=== PATIENT | female | born 1945 | race Caucasian/White ===

== ENCOUNTER 2022-07-19 18:53 | Emergency (ER) | payer SELFPAY ==
[~2022-07-19] VITALS: Ht 157.5 cm; Wt 83.5 kg
[~2022-07-19 18:53] MED LIST: DIOVAN; GLIPIZIDE; METFORMIN; NOVOLOG 70/30
[2022-07-19] MEDS ORDERED: LACTATED RINGER'S 1,000 ML INJ ONE (19:15)
[2022-07-19 19:29] LABS: BASOPHILS # (AUTO) 0.1 (0.0-0.1); BASOPHILS % 0.5 % (0.0-1.0); EOSINOPHILS % 0.3 % (0.0-6.0); HEMATOCRIT 38.3 % (34.2-44.1); HEMOGLOBIN 12.5 g/dL (12.0-16.0); LYMPHOCYTES # (AUTO) 1.3 (1.0-3.2); LYMPHOCYTES % 11.8 % (18.0-39.1); MEAN CORPUSCULAR HEMOGLOBIN 31.2 pg (28-32); MEAN CORPUSCULAR HGB CONC 32.6 g/dL (31-35); MEAN CORPUSCULAR VOLUME 95.5 fL (81-99); MONOCYTES # (AUTO) 0.9 (0.2-0.8); NEUTROPHILS # (AUTO) 8.6 (2.1-6.9); NEUTROPHILS % 79.1 % (38.7-80.0); PLATELET COUNT 287 x10e3/uL (140-360); RED BLOOD COUNT 4.01 x10e6/uL (3.6-5.1); RED CELL DISTRIBUTION WIDTH 10.9 % (11.7-14.4)
[2022-07-19 19:48] LABS: ALBUMIN 3.1 g/dL (3.5-5.0); ALBUMIN/GLOBULIN RATIO 0.7 (0.8-2.0); ANION GAP 18.4 mmol/L (8-16); CALCIUM 8.7 mg/dL (8.4-10.2); CREATININE, SERUM 0.82 mg/dL (0.57-1.11); POTASSIUM 3.4 mmol/L (3.5-5.1)
[2022-07-19 19:50] LABS: CLARITY,URINE CLEAR (CLEAR); COLOR,URINE YELLOW (YELLOW); KETONES,URINE NEGATIVE (NEGATIVE); LEUKOCYTE ESTERASE ,URINE NEGATIVE (NEGATIVE); NITRITE,URINE NEGATIVE (NEGATIVE); PROTEIN,URINE DIPSTICK 1+ (NEGATIVE); URINE UROBILINOGEN 0.2 mg/dL (0.2 - 1)
[2022-07-19] MEDS ORDERED: MUCINEX DM ER1 EACH PO (20:01)
[2022-07-19 20:44] VITALS: BP 125/70
== END 2022-07-19 20:46 | disposition home or self-care (01) ==
LOC: ER 18:59
DX: R50.9 Fever, unspecified (principal); U07.1 COVID-19; R05.9 Cough, unspecified; R09.89 Other specified symptoms and signs involving the circulatory and respiratory systems
CPT/HCPCS: 36415; 71045; 80053; 81001; 85025; 87400; 93005; 99284; U0002

== ENCOUNTER 2023-01-14 06:52 | Observation (INO) | payer MEDICARE ==
[~2023-01-14 06:52] MED LIST changes: +ACETAMINOPHEN 1000 MG/100 ML 100 ML IV ONE; +AMLODIPINE BESYL5 MG PO; +ASPIRIN81 MG PO; +B12; +CELEBREX200 MG PO; +DOXYCYCLINE HY100 MG PO; +HYZAAR 100-251 EACH PO; +JANUVIA25 MG PO; +LANTUS 3ML100 UNITS/; +MUCINEX DM ER1 EACH PO; +PROTONIX20 MG PO; +VITAMIN D
[2023-01-14] MEDS ORDERED: ROPIVACAINE 246.25 MG, EPINEPHRINE HCL 1:1000 1ML 0.5 MG, CLONIDINE HCL 0.08 MG, KETORO... INJ ONE ×5 (07:30)
[2023-01-14] MEDS ORDERED: DEXAMETHASONE SOD PHOS 10 MG/1 ML VIAL ONE ×2 (07:59→11:56)
[2023-01-14] MEDS ORDERED: CELECOXIB 200 MG CAP ONE (07:59)
[2023-01-14] MEDS ORDERED: CEFAZOLIN SODIUM 2 GM ONE (08:00)
[2023-01-14] MEDS ORDERED: LACTATED RINGER'S 1,000 ML ONE (08:00)
[2023-01-14] MEDS ORDERED: GABAPENTIN 300 MG CAP ONE (08:00)
[2023-01-14] MEDS ORDERED: Vancomycin IV 1,000 MG ONE (09:23)
[2023-01-14] MEDS ORDERED: TRANEXAMIC ACID 20 ML ONE (09:23)
[2023-01-14] MEDS ORDERED: SODIUM CHLORIDE 0.9% 500ML 500 ML ONE (09:23)
[2023-01-14 11:28] VITALS: TEMP 97.7
[2023-01-14] MEDS ORDERED: ACETAMINOPHEN 650 MG SUPP PR PRN (11:30)
[2023-01-14] MEDS ORDERED: DIPHENHYDRAMINE HCL INJ 50 MG/ML VIAL IV PRN (11:30)
[2023-01-14] MEDS ORDERED: ONDANSETRON HCL INJ 2MG/ML 2ML 2 MG/ML VIAL IV PRN (11:30)
[2023-01-14] MEDS ORDERED: KETOROLAC TROMETHAMINE 30 MG/ML VIAL IV PRN (11:30)
[2023-01-14] MEDS ORDERED: TRAMADOL HCL 50 MG TAB PO PRN (11:30)
[2023-01-14] MEDS ORDERED: DOCUSATE SODIUM 100 MG CAP PO PRN (11:30)
[2023-01-14] MEDS ORDERED: ROPIVACAINE 0.5% 5 MG/ML 30 ML SDV ONE (11:56)
[2023-01-14] MEDS ORDERED: ONDANSETRON HCL INJ 2MG/ML 2ML 2 MG/ML VIAL ONE (12:04)
[2023-01-14] MEDS ORDERED: POVIDONE IODINE 0.05% 0.05 % ML PO ONE (12:04)
[2023-01-14] MEDS ORDERED: DEXAMETHASONE SOD PHOS INJ 4 MG/ML SDV ONE (12:04)
[2023-01-14] MEDS ORDERED: LIDOCAINE HCL 2% LOCAL INJ 5 ML SDV VIAL INJ ONE (12:04)
[2023-01-14] MEDS ORDERED: PROPOFOL IV EMULSION 10 MG/ML 20 ML VIAL ONE (12:04)
[2023-01-14] MEDS ORDERED: SEVOFLURANE INHAL SOLN 250 ML PEN BTL ONE (12:18)
[2023-01-14] MEDS ORDERED: MIDAZOLAM HCL 2 MG/2 ML VIAL ONE (12:34)
[2023-01-14] MEDS ORDERED: FENTANYL CITRATE/PF 100MCG/2 ML INJ ONE (12:34)
[2023-01-14] MEDS ORDERED: METOCLOPRAMIDE HCL 10 MG/2ML VIAL ONE (13:43)
[2023-01-14] MEDS ORDERED: HYDROCODON-ACE1 EA12 PO (15:51)
[2023-01-14] MEDS ORDERED: SODIUM CHLORIDE 0.9% 1000ML 1,000 ML IV SCH (16:00)
[2023-01-14 16:30] VITALS: BP 135/65; PULSE 85; RESP 17; O2SAT 96
[2023-01-14] MEDS ORDERED: CELECOXIB 200 MG CAP PO SCH (17:00)
[2023-01-14] MEDS ORDERED: ASPIRIN 325 MG TAB PO SCH (20:00)
[2023-01-15] MEDS ORDERED: ACETAMINOPHEN 1000 MG/100 ML IV PRN (11:30)
== END 2023-01-14 17:00 | disposition home health service (06) ==
LOC: OR 06:52 → PACU V 11:16
PROVIDERS: ADMIT Specialist; ATTEND Specialist
DX: M17.11 Unilateral primary osteoarthritis, right knee (principal); E11.9 Type 2 diabetes mellitus without complications; I10 Essential (primary) hypertension; Z88.0 Allergy status to penicillin; Z88.6 Allergy status to analgesic agent; Z91.041 Radiographic dye allergy status; Z01.810 Encounter for preprocedural cardiovascular examination; Z01.812 Encounter for preprocedural laboratory examination; Z01.818 Encounter for other preprocedural examination; Z20.822 Contact with and (suspected) exposure to COVID-19; Z79.82 Long term (current) use of aspirin; Z79.4 Long term (current) use of insulin; Z79.84 Long term (current) use of oral hypoglycemic drugs; Z79.899 Other long term (current) drug therapy; Z68.34 Body mass index [BMI] 34.0-34.9, adult
CPT/HCPCS: 0223U; 27447; 36415 ×2; 71046; 73560; 82948; 86850; 86900; 86920; 93005; 97116; 97161; 97530; C1713 ×2; C1776 ×3; G0378; J0131; J0171; J1100 ×2; J1885; J2001; J2250; J2405; J2704; J2765; J2795; J3010; J3370; J7040; J7121